=== PATIENT | male | born 1970 | race Two or more races ===

== ENCOUNTER → 2016-06-16 | Outpatient (CLI) | payer MEDICARE, MEDICAID ==
[~2016-06-16] MED LIST: ALPR0.25 PO; CARV6.2551 PO; CINA30TA2 PO; CLOP75TA28 PO; DORZ2SOL15 EACHEYE; GABA300C8 PO; IOHEXOL 350 MG/ML 100ML IJ ONE; LOSA100T27 PO; METO5TAB2 PO; SEVE800T8 PO; SITA100T7 PO; SITA50TA PO
[2016-06-16 10:25] VITALS: BP 154/81
[2016-06-16 11:15] VITALS: BP 160/83
== END | disposition home or self-care (01) ==
LOC: Rad HDHVI 10:13
PROVIDERS: ATTEND Internal Medicine Cardiovascular Disease
DX: I13.2 Hypertensive heart and chronic kidney disease with heart failure and with stage 5 chronic kidney disease, or end stage renal disease (principal); I50.9 Heart failure, unspecified; N18.6 End stage renal disease; I25.10 Atherosclerotic heart disease of native coronary artery without angina pectoris; E87.6 Hypokalemia; I73.89 Other specified peripheral vascular diseases; Z99.2 Dependence on renal dialysis
CPT/HCPCS: 75635; G0463; Q9967; 96374

== ENCOUNTER → 2016-06-18 | Outpatient (CLI) | payer MEDICARE, MEDICAID ==
[~2016-06-18] MED LIST changes: -IOHEXOL 350 MG/ML 100ML IJ ONE
== END | disposition home or self-care (01) ==
LOC: Rad HDHVI 09:08
PROVIDERS: ATTEND Internal Medicine Cardiovascular Disease
DX: T86.10 Unspecified complication of kidney transplant (principal)
CPT/HCPCS: 93306

== ENCOUNTER → 2016-06-23 | Outpatient (CLI) | payer MEDICARE, MEDICAID | END | disposition home or self-care (01) | LOC: HDHVI->DVH 09:53 | PROVIDERS: ATTEND Internal Medicine Cardiovascular Disease | DX: Z01.810 Encounter for preprocedural cardiovascular examination (principal); N28.1 Cyst of kidney, acquired; N17.9 Acute kidney failure, unspecified | CPT/HCPCS: 76700 ==

== ENCOUNTER 2016-07-13 18:29 | Emergency (ER) | payer MEDICARE, MEDICAID ==
[~2016-07-13] VITALS: Ht 185.4 cm; Wt 79.4 kg
[2016-07-13 18:33] VITALS: BP 180/74
[2016-07-13 19:58] LABS: Basophils # (auto) 0 uL; Basophils % (auto) 0.3 % (0.0-2.0); Eosinophils # (auto) 0.1 uL; Eosinophils % (auto) 0.6 % (0.0-7.0); Hematocrit 34.9 % (41.0-53.0); Hemoglobin 11.9 g/dL (13.5-17.5); Lymphocytes # (auto) 2.2 uL; Lymphocytes % (auto) 17.5 % (10.0-50.0); Mean Corpuscular Hemoglobin 33.5 pg (28.0-32.0); Mean Corpuscular Hgb Conc. 34.2 g/dL (32.0-36.0); Mean Corpuscular Volume 97.8 fL (80.0-100.0); Mean Platelet Volume 9.4 fL (7.4-10.4); Monocytes # (auto) 0.7 uL; Monocytes % (auto) 5.2 % (0.0-12.0); Neutrophils # (auto) 9.6 uL; Neutrophils % (auto) 76.4 % (37.0-80.0); Platelet Count (auto) 180 10^3/uL (140-450); Red Cell Distribution Width 13.8 % (11.6-16.0); White Blood Cell 12.5 10^3/uL (4.4-10.8)
[2016-07-13 20:19] LABS: Albumin 3.9 g/dL (3.4-5.0); BUN/Creatinine Ratio 5.3; Calcium 9.4 mg/dL (8.5-10.1); Magnesium 2.5 mg/dL (1.6-2.6); Potassium 3.3 mmol/L (3.5-5.1)
[2016-07-13 20:24] LABS: Bilirubin, Total 0.7 mg/dL (0.2-1.0); Total Protein 7.7 g/dL (6.4-8.2)
== END 2016-07-13 22:42 | disposition left against medical advice (07) ==
LOC: EDBD 18:29 → ER 18:37
DX: R07.9 Chest pain, unspecified (principal); I13.2 Hypertensive heart and chronic kidney disease with heart failure and with stage 5 chronic kidney disease, or end stage renal disease; I50.9 Heart failure, unspecified; N18.6 End stage renal disease; I25.10 Atherosclerotic heart disease of native coronary artery without angina pectoris; K21.9 Gastro-esophageal reflux disease without esophagitis; E11.22 Type 2 diabetes mellitus with diabetic chronic kidney disease; E87.6 Hypokalemia; R79.89 Other specified abnormal findings of blood chemistry; Z99.2 Dependence on renal dialysis
CPT/HCPCS: 36415; 80053; 83735; 84484; 85025; 93005

== ENCOUNTER → 2016-08-31 | Outpatient (CLI) | payer MEDICARE, MEDICAID ==
[~2016-08-31] MED LIST changes: +GABA-497 PO; -GABA300C8 PO
[2016-09-08 15:52] LABS: INR 1.3 (0.7-1.3); Prothrombin Time 15.7 sec (9.0-12.0)
== END | disposition home or self-care (01) ==
LOC: LAB 09:12
PROVIDERS: ATTEND Internal Medicine Cardiovascular Disease
DX: R79.1 Abnormal coagulation profile (principal)
CPT/HCPCS: 85610

== ENCOUNTER → 2016-09-08 | Outpatient (CLI) | payer MEDICARE, MEDICAID ==
[~2016-09-08] MED LIST changes: -GABA-497 PO; +GABA300C8 PO
== END | disposition home or self-care (01) ==
LOC: LAB 08:20
PROVIDERS: ATTEND Internal Medicine Cardiovascular Disease
DX: R79.1 Abnormal coagulation profile (principal)
CPT/HCPCS: 85610

== ENCOUNTER 2017-05-24 11:27 | Inpatient (IN) | payer MEDICARE, MEDICAID ==
[~2017-05-24] VITALS: Ht 175.3 cm; Wt 79.4 kg
[~2017-05-24 11:27] MED LIST changes: -DORZ2SOL15 EACHEYE; +DORZ2SOL22 EACHEYE; +GABA300C10 PO; -GABA300C8 PO
[2017-05-24] MEDS ORDERED: PANTOPRAZOLE 40 MG/10 ML VIAL IV ONE (12:00)
[2017-05-24] MEDS ORDERED: IOHEXOL 300 MG/ML 100ML BOTTLE IJ ONE (12:03)
[2017-05-24 13:16] LABS: Basophils # (auto) 0.1 uL; Basophils % (auto) 0.4 % (0.0-2.0); Eosinophils # (auto) 0.1 uL; Eosinophils % (auto) 0.7 % (0.0-7.0); Hematocrit 35.7 % (41.0-53.0); Lymphocytes # (auto) 1.4 uL; Lymphocytes % (auto) 9.3 % (10.0-50.0); Mean Corpuscular Hemoglobin 33.1 pg (28.0-32.0); Mean Corpuscular Hgb Conc. 33.5 g/dL (32.0-36.0); Mean Corpuscular Volume 98.7 fL (80.0-100.0); Monocytes # (auto) 0.7 uL; Monocytes % (auto) 4.3 % (0.0-12.0); Neutrophils # (auto) 13.2 uL; Neutrophils % (auto) 85.3 % (37.0-80.0); Platelet Count (auto) 199 10^3/uL (140-450); Red Blood Cells 3.62 10^6/uL (4.5-5.90); Red Cell Distribution Width 13.2 % (11.8-14.3); White Blood Cell 15.4 10^3/uL (4.4-10.8)
[2017-05-24 13:32] LABS: Albumin 4.2 g/dL (3.4-5.0); BUN/Creatinine Ratio 8.1; Calcium 8.5 mg/dL (8.5-10.1); Potassium 4.8 mmol/L (3.5-5.1)
[2017-05-24 13:42] LABS: Bilirubin, Total 0.3 mg/dL (0.2-1.0); Total Protein 8.2 g/dL (6.4-8.2)
[2017-05-24] MEDS ORDERED: LABETALOL HCL 5 MG/ML ML 20ML VIAL IV ONE (15:30)
[2017-05-24] MEDS ORDERED: hydrALAZINE HCL 20 MG/ML VL IV ONE (16:15)
[2017-05-24] MEDS ORDERED: MORPHINE SULFATE 4 MG/ML SYR/VIAL IV PRN ×2 (16:15)
[2017-05-24] MEDS ORDERED: HYDROcodone-ACET 5/325MG TAB PO PRN (16:15)
[2017-05-24] MEDS ORDERED: NITROGLYCERIN 0.4 MG SL TAB SL PRN (16:15)
[2017-05-24] MEDS ORDERED: ONDANSETRON HCL 4 MG/2 ML VIAL IV PRN (16:15)
[2017-05-24] MEDS ORDERED: PROMETHAZINE HCL 25 MG/ML 1ML IV PRN (16:15)
[2017-05-24] MEDS ORDERED: CINACALCET HYDROCHLORIDE 30 MG TAB PO ONE (16:45)
[2017-05-24] MEDS ORDERED: GABAPENTIN 300 MG CAP PO ONE (16:45)
[2017-05-24] MEDS ORDERED: LOSARTAN POTASSIUM 50 MG TAB PO ONE ×2 (16:45→17:00)
[2017-05-24] MEDS ORDERED: VANCOMYCIN PER PHARMACY 0 MG IV SCH (16:45)
[2017-05-24] MEDS ORDERED: CARVEDILOL 3.125 MG TAB PO ONE ×2 (16:45→17:00)
[2017-05-24] MEDS ORDERED: DEXTROSE (50%) 50ML SYRG IV PRN (17:00)
[2017-05-24] MEDS ORDERED: VANCOMYCIN 1GM/250ML 250 ML IV ONE (17:00)
[2017-05-24] MEDS: cefTRIAXone 1GM/10ml IVPUSH 10 ML IV SCH (17:06)
[2017-05-24] MEDS: ACCU-CHEK COMFORT CURVE STRIP VI SCH ×2 (17:24→22:25)
[2017-05-24] MEDS: InsuLIN REG 1unit/0.01ml Soln (100units/ml) SC SCH ×2 (17:24→22:25)
[2017-05-24] MEDS ORDERED: ALPRAZolam 0.5 MG TAB PO PRN (17:45)
[2017-05-24] MEDS: SEVELAMER 800 MG TAB PO SCH (18:00)
[2017-05-24 18:15] LABS: INR 0.97 (0.9-1.15); Partial Thromboplastin Time 28.3 sec (22.64-33.71); Prothrombin Time 10.6 sec (9.37-12.3)
[2017-05-24] MEDS: LABETALOL HCL 5 MG/ML ML 20ML VIAL IV PRN (21:05)
[2017-05-24] MEDS ORDERED: PIPERACILLIN-TAZOB 2.25GM 50 ML IV SCH (22:00)
[2017-05-24] MEDS ORDERED: hydrALAZINE HCL 20 MG/ML VL IV PRN (22:00)
[2017-05-24] MEDS: metroNIDAZOLE 500MG/100ML 100 ML IV SCH (22:24)
[2017-05-24] MEDS: PANTOPRAZOLE 40 MG/10 ML VIAL IV SCH (22:25)
[2017-05-24] MEDS: CARVEDILOL 3.125 MG TAB PO SCH (22:25)
[2017-05-25] MEDS: LABETALOL HCL 5 MG/ML ML 20ML VIAL IV PRN (03:15)
[2017-05-25 06:09] LABS: Basophils # (auto) 0.1 uL; Basophils % (auto) 0.6 % (0.0-2.0); Eosinophils # (auto) 0.1 uL; Eosinophils % (auto) 1.1 % (0.0-7.0); Hematocrit 38.7 % (41.0-53.0); Hemoglobin 13.1 g/dL (13.5-17.5); Lymphocytes # (auto) 1.7 uL; Lymphocytes % (auto) 13.8 % (10.0-50.0); Mean Corpuscular Hemoglobin 33.4 pg (28.0-32.0); Mean Corpuscular Hgb Conc. 33.7 g/dL (32.0-36.0); Mean Corpuscular Volume 99.2 fL (80.0-100.0); Monocytes # (auto) 0.6 uL; Neutrophils # (auto) 9.9 uL; Neutrophils % (auto) 79.5 % (37.0-80.0); Nucleated Red Blood Cells % 0.1 %; Platelet Count (auto) 211 10^3/uL (140-450); Red Cell Distribution Width 13.5 % (11.8-14.3); White Blood Cell 12.4 10^3/uL (4.4-10.8)
[2017-05-25 06:29] LABS: BUN/Creatinine Ratio 7.4; Calcium 9.5 mg/dL (8.5-10.1); Potassium 4.1 mmol/L (3.5-5.1)
[2017-05-25] MEDS: metroNIDAZOLE 500MG/100ML 100 ML IV SCH (06:45)
[2017-05-25] MEDS: InsuLIN REG 1unit/0.01ml Soln (100units/ml) SC SCH ×4 (07:00→21:43)
[2017-05-25] MEDS: ACCU-CHEK COMFORT CURVE STRIP VI SCH ×4 (07:00→21:43)
[2017-05-25] MEDS: SEVELAMER 800 MG TAB PO SCH ×4 (08:00→18:05)
[2017-05-25] MEDS ORDERED: ALPRAZolam 0.25 MG TAB PO SCH (10:00)
[2017-05-25] MEDS ORDERED: CARVEDILOL 3.125 MG TAB PO SCH (10:00)
[2017-05-25] MEDS: GABAPENTIN 300 MG CAP PO SCH (12:20)
[2017-05-25] MEDS: CARVEDILOL 3.125 MG TAB PO SCH ×2 (12:20→21:36)
[2017-05-25] MEDS: PANTOPRAZOLE 40 MG/10 ML VIAL IV SCH ×2 (12:20→21:35)
[2017-05-25] MEDS: CINACALCET HYDROCHLORIDE 30 MG TAB PO SCH (12:20)
[2017-05-25] MEDS: LOSARTAN POTASSIUM 50 MG TAB PO SCH (12:20)
[2017-05-25] MEDS: cefTRIAXone 1GM/10ml IVPUSH 10 ML IV SCH (12:21)
[2017-05-25] MEDS: amLODIPine BESYLATE 5 MG TAB PO SCH (14:08)
[2017-05-25] MEDS ORDERED: VANCOMYCIN 1GM/250ML 250 ML IV ONE (17:00)
[2017-05-26] MEDS: ACCU-CHEK COMFORT CURVE STRIP VI SCH ×3 (06:07→16:55)
[2017-05-26] MEDS: InsuLIN REG 1unit/0.01ml Soln (100units/ml) SC SCH ×3 (06:07→16:55)
[2017-05-26 06:55] LABS: Basophils # (auto) 0.1 uL; Basophils % (auto) 0.7 % (0.0-2.0); Eosinophils # (auto) 0.2 uL; Eosinophils % (auto) 2.4 % (0.0-7.0); Hematocrit 38.5 % (41.0-53.0); Hemoglobin 13.1 g/dL (13.5-17.5); Lymphocytes # (auto) 2.5 uL; Lymphocytes % (auto) 27.2 % (10.0-50.0); Mean Corpuscular Hemoglobin 33.5 pg (28.0-32.0); Mean Corpuscular Volume 98.6 fL (80.0-100.0); Monocytes # (auto) 0.8 uL; Monocytes % (auto) 8.7 % (0.0-12.0); Neutrophils # (auto) 5.6 uL; Nucleated Red Blood Cells % 0.1 %; Platelet Count (auto) 202 10^3/uL (140-450); Red Cell Distribution Width 13.2 % (11.8-14.3); White Blood Cell 9.2 10^3/uL (4.4-10.8)
[2017-05-26 06:58] LABS: Calcium 9.8 mg/dL (8.5-10.1); Potassium 4.1 mmol/L (3.5-5.1)
[2017-05-26 07:06] LABS: BUN/Creatinine Ratio 5.5
[2017-05-26] MEDS ORDERED: SODIUM CHL 0.9% 1000 ML BAG XX ONE (08:00)
[2017-05-26] MEDS ORDERED: LIDOCAINE VISCOUS 2% 15ML UD ONE (08:14)
[2017-05-26] MEDS ORDERED: diphenhdrAMINE HCL 50 MG/1 ML VL ONE (08:14)
[2017-05-26] MEDS ORDERED: SODIUM CHLORIDE LOCK 10 ML ONE (08:15)
[2017-05-26] MEDS: CARVEDILOL 3.125 MG TAB PO SCH (10:00)
[2017-05-26] MEDS: LOSARTAN POTASSIUM 50 MG TAB PO SCH (10:00)
[2017-05-26] MEDS: amLODIPine BESYLATE 5 MG TAB PO SCH (10:00)
[2017-05-26] MEDS: CINACALCET HYDROCHLORIDE 30 MG TAB PO SCH ×2 (10:00→11:02)
[2017-05-26] MEDS: SEVELAMER 800 MG TAB PO SCH ×3 (10:23→18:19)
[2017-05-26] MEDS: PANTOPRAZOLE 40 MG/10 ML VIAL IV SCH (10:24)
[2017-05-26] MEDS: GABAPENTIN 300 MG CAP PO SCH (10:24)
[2017-05-26] MEDS: fentaNYL CITRATE 100 MCG/2 ML VL ONE ×2 (12:04→12:08)
[2017-05-26] MEDS: MIDAZOLAM HCL 5 MG/ML-1ML VIAL ONE ×2 (12:04→12:08)
[2017-05-26 19:32] VITALS: BP 157/95
[2017-05-26 19:51] VITALS: BP 154/81
[2017-05-26] MEDS ORDERED: PANTOPRAZOLE 40 MG TAB PO SCH (22:00)
== END 2017-05-26 21:30 | disposition home or self-care (01) | DRG 377 ==
LOC: ER 11:27 → EDBD 11:27 → TELE 11:28
PROVIDERS: ADMIT Internal Medicine; ATTEND Internal Medicine
PROC: 5A1D70Z Performance of Urinary Filtration, Intermittent, Less than 6 Hours Per Day (ICD-10-PCS; 2017-05-25)
PROC: 5A1D70Z Performance of Urinary Filtration, Intermittent, Less than 6 Hours Per Day (ICD-10-PCS; 2017-05-26)
PROC: 0DB68ZX Excision of Stomach, Via Natural or Artificial Opening Endoscopic, Diagnostic (ICD-10-PCS; principal; 2017-05-26 12:03)
DX: K29.71 Gastritis, unspecified, with bleeding (principal); N18.6 End stage renal disease; I13.2 Hypertensive heart and chronic kidney disease with heart failure and with stage 5 chronic kidney disease, or end stage renal disease; E11.22 Type 2 diabetes mellitus with diabetic chronic kidney disease; E11.51 Type 2 diabetes mellitus with diabetic peripheral angiopathy without gangrene; E11.319 Type 2 diabetes mellitus with unspecified diabetic retinopathy without macular edema; I50.23 Acute on chronic systolic (congestive) heart failure; N25.81 Secondary hyperparathyroidism of renal origin; D63.1 Anemia in chronic kidney disease; D72.829 Elevated white blood cell count, unspecified; H54.8 Legal blindness, as defined in USA; I25.10 Atherosclerotic heart disease of native coronary artery without angina pectoris; K21.0 Gastro-esophageal reflux disease with esophagitis; K29.80 Duodenitis without bleeding; I25.5 Ischemic cardiomyopathy; F41.9 Anxiety disorder, unspecified; E11.65 Type 2 diabetes mellitus with hyperglycemia; I25.2 Old myocardial infarction; Z86.73 Personal history of transient ischemic attack (TIA), and cerebral infarction without residual deficits; Z83.3 Family history of diabetes mellitus; Z95.1 Presence of aortocoronary bypass graft; Z99.2 Dependence on renal dialysis
CPT/HCPCS: 36415; 43239; 71045; 74177; 80048; 80053; 80202; 82962; 83036; 85025; 85610; 85730; 90935; 93005; 96374; 96375; C9113; J1642; J1815; J2250; J3490